=== PATIENT | female | born 1985 | race Caucasian/White ===

== ENCOUNTER 2017-01-18 14:41 | Emergency (ER) | payer MEDICAID ==
--- NOTE | 2017-01-18 15:32 | EDM.PDOC ---
ED HPI GENERAL MEDICAL PROBLEM - General Chief Complaint: General Stated Complaint: OUT OF MEDS Time Seen by Provider: 01/18/17 15:13 Source of Information: Reports: Patient History Limitations: Reports: No Limitations - History of Present Illness INITIAL COMMENTS - FREE TEXT/NARRATIVE: HISTORY AND PHYSICAL: [] History of Present Illness: Oscar is a 31-year-old female that presents to the emergency room today with complaints of being out of her medications. States she moved to [place] from [place] proximately one month ago. States she had ran out of her Neurontin, Cymbalta, Klonopin, and Ativan approximately 4 days ago. Reports she is unable to get an appointment with primary care provider to get these refilled. Voices concern that she may have a "seizure" if she is without these medications for an extended period of time. States approximately 2 years ago she had a seizure due to withdrawal from these medications. 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 He eats while she was in [place] she was seeing a counselor once a month and her primary care doctor monthly who felt her medications. Patient denies any thoughts of self-harm. Review of Systems: As per history of present illness and below otherwise all systems reviewed and negative. Past medical history: As per history of present illness and as reviewed below otherwise noncontributory. Surgical history: As per history of present illness and as reviewed below otherwise noncontributory. Social history: No reported history of drug or alcohol abuse. Family history: As per history of present illness and as reviewed below otherwise noncontributory. Physical exam: Nontoxic appearing 31-year-old female. Answers questions appropriately. Able to speak in full sentences. HEENT: Atraumatic, normocehpalic, pupils reactive, negative for conjunctival pallor or scleral icterus, mucous membranes moist, throat clear, neck supple, nontender, trachea midline. Lungs: Clear to auscultation, breath sounds equal bilaterally, chest non tender. Heart: S1S2, regular, negative for clicks, rubs, or JVD. Abdomen: Soft, nondistended, nontender. Extremities: Atraumatic, moves all per self. Neurovascular unremarkable. Neuro: Awake, alert, oriented. Cranial nerves II through XII unremarkable. Cerebellum unremarkable. Motor and sensory unremarkable throughout. Exam nonfocal. Diagnostics: [None] Therapeutics: [Home medications given while in the ER: Neurontin 400 mg by mouth now Cymbalta 30 mg by mouth now Klonopin 2 mg by mouth now] Impression: [Request for medication refill] Plan: [Follow-up with Seema Cee as we have arranged for you. The appointment is January 19, 2017 at 12:30 PM. That appointment she can have your medication refill discussed.] Definitive disposition and diagnosis as appropriate pending reevaluation and review of above. Onset: Gradual - Related Data Allergies Allergy/AdvReac Type Severity Reaction Status Date / Time No Known Allergies Allergy Verified 01/18/17 15:04 Home Meds: Home Meds ClonazePAM [KlonoPIN] 2 mg PO BID 01/18/17 [History] DULoxetine [Cymbalta] 30 mg PO DAILY 01/18/17 [History] Gabapentin [Neurontin] 400 mg PO TID 01/18/17 [History] Zolpidem [Ambien] 10 mg PO DAILY 01/18/17 [History] ED ROS GENERAL - Review of Systems Review Of Systems: ROS reveals no pertinent complaints other than HPI. ED EXAM, GENERAL - Physical Exam Exam: See Below Course - Vital Signs Last Recorded V/S: Last Vital Signs Temp 36.7 C 01/18/17 15:09 Pulse 93 01/18/17 15:09 Resp 18 01/18/17 15:09 BP 132/74 01/18/17 15:09 Pulse Ox 100 01/18/17 15:09 - Orders/Labs/Meds Meds: Medications Discontinued Medications Generic Name Dose Route Start Last Admin Trade Name Zhou PRN Reason Stop Dose Admin Clonazepam 2 mg 01/18/17 15:42 Klonopin PO 01/18/17 15:43 NOW STA Duloxetine HCl 30 mg 01/18/17 15:42 Cymbalta PO 01/18/17 15:43 ONETIME ONE Gabapentin 400 mg 01/18/17 15:42 Neurontin PO 01/18/17 15:43 ONETIME ONE Departure - Departure Time of Disposition: 16:12 Disposition: Home, Self-Care 01 Condition: Good Clinical Impression: Medication refill - Discharge Information Referrals: PCP,None [Primary Care Provider] - Carisa Duncan, [employer] [Nurse Practitioner] - Forms: ED Department Discharge Additional Instructions: The following information is given to patients seen in the emergency department who are being discharged to home. This information is to outline your options for follow-up care. We provide all patients seen in our emergency department with a follow-up referral. The need for follow-up, as well as the timing and circumstances, are variable depending upon the specifics of your emergency department visit. If you don't have a primary care physician on staff, we will provide you with a referral. We always advise you to contact your personal physician following an emergency department visit to inform them of the circumstance of the visit and for follow-up with them and/or the need for any referrals to a consulting specialist. The emergency department will also refer you to a specialist when appropriate. This referral assures that you have the opportunity for followup care with a specialist. All of these measure are taken in an effort to provide you with optimal care, which includes your followup. Under all circumstances we always encourage you to contact your private physician who remains a resource for coordinating your care. When calling for followup care, please make the office aware that this follow-up is from your recent emergency room visit. If for any reason you are refused follow-up, please contact the [facility] emergency department at and asked to speak to the emergency department charge nurse. Appointment has been made for you to see Soni Duncan NP tomorrow Tuesday01/19/2017 at 12:30 PM. Her office is located at [facility] adjacent to the emergency room
[2017-01-18] MEDS ORDERED: Gabapentin 100 MG Cap PO ONE (15:42)
[2017-01-18] MEDS ORDERED: ClonazePAM 1 MG Tab PO STA (15:42)
[2017-01-18] MEDS ORDERED: DULoxetine 30 MG Cap PO ONE (15:42)
[2017-01-18] MEDS ORDERED: ClonazePAM 1 MG Tab PO ONE (16:23)
[2017-01-18 16:30] VITALS: BP 113/75
== END 2017-01-18 16:28 | disposition home or self-care (01) ==
LOC: MW.ED 14:41
DX: Z76.0 Encounter for issue of repeat prescription (principal); Z79.899 Other long term (current) drug therapy
CPT/HCPCS: 99281; A9270; 99283